=== PATIENT | female | born 1990 | race African-American/Black ===

== ENCOUNTER 2021-10-16 07:44 | Emergency (ER) | payer SELFPAY ==
--- OUTSIDE RECORDS SUMMARY | 2021-10-16 07:47 | XMS REPORT | Continuity of Care Document ---
:1990 Author Organization [facility] t Address [address] [place] [address] Care Team Providers Name Role Phone PCP, PATIENT DOES NOT HAVE A Primary Care Physician Unavaila RADHA Ro Attending Clinician Unavailable DAWSON ASKEW Attending Clinician Unavailable Dawson Askew MD Attending Clinician PAMELA TRIANA Attending Clinician Unavailable Pamela Edgar Attending Clinician AALIYAH HEADLEY Attending Clinician Unavailable LUPE ENAMORADO Attending Clinician Unavailable Doctor Unassigned, Roff Attending Clinician Unavailable LEE WHITMAN Attending Clinician Unavailable FAVIO JEAN BAPTISTE Attending Clinician Unavailable Favio Mensah Attending Clinician PASCUAL RIVERA Attending Clinician Unavailable PRATIK RANDALL Attending Clinician Unavailable DAWSON ASKEW Admitting Clinician Unavailable FAVIO JEAN BAPTISTE Admitting Clinician Unavailable Payers Payer Name Policy Type Policy Number Effective Date Expiration Date Anum nunez [place]ICAID OF [place] [id number] 2015 00:00:00 Problems Condition Condition Condition Status Onset Resolution Last Treating Co mments Source Name Details Category Date Date Treatment Clinician Date Ectopic Ectopic Disease Active Univers 9-20 ity of 00:00: [place] 00 [facility] Ectopic Ectopic Disease Active Univers , , 9-20 it y of tubal tubal 00:00: [place] 00 [facility] Active Active Disease Active 2014-03 Univers labor labor 1-19 ity of 00:00: 00 [facility] 39 weeks 39 weeks Disease Active 2014-03 Unive rs gestation gestation 1- ity of of of 00:00: [place] 00 [facility] Elevated Elevated Disease Active 2014-03 Unive rs blood blood -19 ity of pressure pressure 00:00: [place] affecting affecting 00 [facility] Bran ch in third in third trimester, trimester, antepartum antepartum Allergies, Adverse Reactions, Alerts Allergy Allergy Status Severity Reaction(s) Onset Inactive Treating Comm ents Source Name Type Date Date Clinician NO KNOWN Drug Active Univers ALLERGIE Class ity of [facility] Social History Social Habit Start Date Stop Date Quantity Comments Source History of tobacco 2014-04-27 Cigarette Smoker University of use 00:00:00 [facility] Exposure to 2021-09-28 2021-10-08 Not sure University of SARS-CoV-2 (event) 00:00:00 03:42:00 [facility] Cigarettes smoked 2015-01-25 2015-01-25 Univers ity of current (pack per 00:00:00 00:00:00 ) - Reported Branch Tobacco use and 2015-01-25 2015-01-25 Smokeless Universit y of exposure 00:00:00 00:00:00 tobacco non-user [facility] Sex Ass[birth year] At [birth year] Universit y of 00:00:00 00:00:00 [facility] Smoking Status Start Date Stop Date Source Ex-smoker 2015-01-25 00:00:00 2015-01-25 00:00:00 [facility] [place] [facility] Medications Ordered Filled Start Stop Current Ordering Indication Dosage Frequency Signature Comments Components Source Medication Medication Date Date Medication? Clinician (SIG) Name Name ketorolac No 30mg 30 mg, Unive rs (TORADOL) 10-08 Slow IV ity of injection 12:15: 11:20 Push, [place] 30 mg 00 :00 ONCE, 1 Medical dose, On Branch Thu10/08/21 at 0715, EVARISTO iohexol 2021- No [id number] 100mL 100 mL, Univers (OMNIPAQUE 10-08 Intravenou it y of 350 10:15: 10:03 s, ONCE, 1 [place] BULK-100 00 :00 dose, On Medical mL) Thu10/08/21 Branch injection at 0515, 100 mL Routine morpHINE (4 2021- No 4mg 4 mg, Slow Univers mg/mL) 10-08 IV Push, ity of injection 4 09:30: 09:38 [place]CE[place] 1 [place] mg [place] :[place] dose, On Medical Thu10/08/21 Branch at 0430, EVARISTO metoclopram No 10mg 10 mg, Uni vers [place] HCl 10-08 Slow IV ity of (REGLAN) 08:30: 08:47 Push, [place] injection 00 :00 ONCE, 1 Medical 10 mg dose, On Branch Thu10/08/21 at 0330, EVARISTO butalbital- Yes [id number] 1{tbl} Take 1 Univers acetaminoph 10-08 tablet by ity of en-caff 00:00: mouth [place] 50-325-40 00 every 4 Medical mg tablet (four) Branch hours as needed for Pain (scale 4-6). metoclopram Yes [id number] 10mg Take 1 Univers [place] HCl 10 10-08 tablet by ity of mg tablet 00:00: mouth [place] 00 every 6 Medical (six) Branch hours. LORazepam 2021- No 1mg 1 mg, Univer s (ATIVAN) 10-06- Oral, ity of tablet 1 mg 03:00: 03:09 ONCE[place] 1 [place] :[place] dose, On Medical Sat Branch 10/05/21 at 2200, EVARISTO ketorolac 2021- No 30mg 30 mg, Unive rs (TORADOL) 08-20 06-14 Intramuscu ity of injection 07:15: 06:13 lar, ONCE, [place] 30 mg 00 :00 1 dose, On Medical Tue Branch 08/20/21 at 0215, EVARISTO predniSONE 2021- No [id number] 20mg Take 1 Univers 20 mg 4-24 04-29 tablet by ity of tablet 00:00: 04:59 mouth 2 [place] 00 :00 (two) Medical times Branch daily for 4 days. methylPREDN Yes [id number] Take by [facility] ISolone 4 3-24 mouth ity of mg tablets 00:00: [place]-INSTRU [place] 00 CTIONS. Medical follow Branch package directions methylPREDN Yes [id number] Take by Univers ISolone 4 3-24 mouth ity of mg tablets 00:00: [place]INSTRU [place] 00 CTIONS. Medical follow Branch package directions methylPREDN Yes [id number] Take by Univers ISolone 4 3-24 mouth ity of mg tablets 00:00: [place]-INSTRU [place] 00 CTIONS. Medical follow Branch package directions methylPREDN Yes [id number] Take by Univers ISolone 4 3-24 mouth ity of mg tablets 00:00: [place]-INSTRU [place] 00 CTIONS. Medical follow Branch package directions methylPREDN 2021- No [id number] Take by [facility] ISolone 4 3-24 07-30 mouth ity of mg tablets 00:00: 00:00 SEE-INSTRU [place] 00 :00 CTIONS. Medical follow Branch package directions HYDROcodone Yes 1{tbl} Take 1 Un keysha -acetaminop 9-21 tablet by ity of hen (NORCO) 00:00: mouth [place] 10-325 mg 00 every 6 Medical tablet (six) Branch hours as needed for Pain (scale 1-3), Pain (scale 4-6) or Pain (scale 7-10). ibuprofen Yes 800mg Take 1 Unive rs (MOTRIN) 9-21 tablet by ity of 800 mg 00:00: mouth [place] tablet 00 every 8 Medical (eight) Branch hours as needed for Pain (scale 1-3). HYDROcodone 2016- Yes 1{tbl} Take 1 Un keysha -acetaminop 9-21 tablet by ity of hen (NORCO) 00:00: mouth [place] 10-325 mg 00 every 6 Medical tablet (six) Branch hours as needed for Pain (scale 1-3), Pain (scale 4-6) or Pain (scale 7-10). ibuprofen 2015- Yes 800mg Take 1 Unive rs (MOTRIN) 9-21 tablet by ity of 800 mg 00:00: mouth [place] tablet 00 every 8 Medical (eight) Branch hours as needed for Pain (scale 1-3). HYDROcodone Yes 1{tbl} Take 1 Un keysha -acetaminop 9-21 tablet by ity of hen (NORCO) 00:00: mouth [place] 10-325 mg 00 every 6 Medical tablet (six) Branch hours as needed for Pain (scale 1-3), Pain (scale 4-6) or Pain (scale 7-10). ibuprofen 2015- Yes 800mg Take 1 Unive rs (MOTRIN) 9-21 tablet by ity of 800 mg 00:00: mouth [place] tablet 00 every 8 Medical (eight) Branch hours as needed for Pain (scale 1-3). HYDROcodone Yes 1{tbl} Take 1 Un keysha -acetaminop 9-21 tablet by ity of hen (NORCO) 00:00: mouth [place] 10-325 mg 00 every 6 Medical tablet (six) Branch hours as needed for Pain (scale 1-3), Pain (scale 4-6) or Pain (scale 7-10). ibuprofen 2015- Yes 800mg Take 1 Unive rs (MOTRIN) 9-21 tablet by ity of 800 mg 00:00: mouth [place] tablet 00 every 8 Medical (eight) Branch hours as needed for Pain (scale 1-3). HYDROcodone 2021- No 1{tbl} Take 1 U nivers -acetaminop 9-21 07-30 tablet by it y of hen (NORCO) 00:00: 00:00 [place] 10-325 mg 00 :00 every 6 Medical tablet (six) Branch hours as needed for Pain (scale 1-3), Pain (scale 4-6) or Pain (scale 7-10). ibuprofen 800mg Take 1 Univ ers (MOTRIN) 11-27 tablet by veda flynn 800 mg 00:00: 00:00 mouth [place] tablet 00 :00 every 8 Medical (eight) Branch hours as needed for Pain (scale 1-3). Vital Signs Vital Name Observation Time Observation Value Comments Source Systolic blood 2021-10-08 12:04:00 146 mm[Hg] Univer sity of pressure [facility] Diastolic blood 2021-10-08 12:04:00 99 mm[Hg] Unive rsity of [facility] Heart rate 2021-10-08 12:04:00 50 /min Universi ty [facility] Respiratory rate 2021-10-08 12:04:00 16 /min [facility] [place] [facility] saturation in 2021-10-08 12:04:00 99 /min University of Arterial blood by [facility] Pulse oximetry Branch Body temperature 2021-10-08 08:18:00 36.83 Светлана [facility] ersity [facility] Body height 2021-10-08 08:18:00 160 cm Universi ty [facility] Body weight 2021-10-08 08:18:00 61.689 kg Universi ty [facility] BMI 2021-10-08 08:18:00 24.09 kg/m2 Universi ty [facility] Systolic blood 2021-10-06 04:24:00 143 mm[Hg] Univer sity of [facility] Diastolic blood 2021-10-06 04:24:00 112 mm[Hg] Unive rsity of [facility] Heart rate 2021-10-06 04:24:00 81 /min Universi ty [facility] Branch Respiratory rate 2021-10-06 04:24:00 19 /min Univ ersity of [facility] Oxygen saturation in 2021-10-06 04:24:00 99 /min University of Arterial blood by [facility] Pulse oximetry Branch Body weight 2021-10-06 02:21:00 61.689 kg Universi ty [facility] BMI 2021-10-06 02:21:00 24.09 kg/m2 Universi ty [facility] Body temperature 2021-10-06 02:21:00 36.39 Светлана Univ ersity of [place] [facility] Body height 2021-10-06 02:21:00 160 cm Universi ty of [place] [facility] Systolic blood 2021-09-17 21:19:00 106 mm[Hg] Univer sity of pressure [place] [facility] Diastolic blood 2021-09-17 21:19:00 61 mm[Hg] Unive rsity of pressure [place] [facility] Heart rate 2021-09-17 21:19:00 66 /min Universi ty of [place] [facility] Body temperature 2021-09-17 21:19:00 37.28 Светлана Univ ersity of [place] [facility] Respiratory rate 2021-09-17 21:19:00 16 /min Univ ersity of [place] [facility] Body height 2021-09-17 21:19:00 160 cm Universi ty [facility] [place] [facility] Body weight 2021-09-17 21:19:00 61.689 kg Universi ty [facility] [place] [facility] BMI 2021-09-17 21:19:00 24.09 kg/m2 Universi ty of [place] [facility] Oxygen saturation in 2021-09-17 21:19:00 100 /min University of Arterial blood by [place] [employer] Pulse oximetry Branch Systolic blood 2021-08-20 08:00:00 109 mm[Hg] Univer sity of pressure [place] [facility] Diastolic blood 2021-08-20 08:00:00 72 mm[Hg] Unive rsity of pressure [place] [facility] Heart rate 2021-08-20 08:00:00 52 /min Universi ty of [place] [facility] Respiratory rate 2021-08-20 08:00:00 16 /min Univ ersity of [place] [facility] Oxygen saturation in 2021-08-20 08:00:00 100 /min University of Arterial blood by [place] [employer] Pulse oximetry Branch Body temperature 2021-08-20 05:51:00 36.83 Светлана Univ ersity of [place] [facility] Body height 2021-08-20 05:51:00 160 cm Universi ty of [place] [facility] Body weight 2021-08-20 05:51:00 61.236 kg Universi ty of [place] [facility] BMI 2021-08-20 05:51:00 23.91 kg/m2 Universi ty of [place] [facility] Systolic blood 2021-06-30 17:02:00 123 mm[Hg] Univer sity of pressure [facility] Diastolic blood 2021-06-30 17:02:00 87 mm[Hg] Unive rsity of pressure [facility] Heart rate 2021-06-30 17:02:00 76 /min [facility] Body temperature 2021-06-30 17:02:00 37.33 Светлана [facility] Respiratory rate 2021-06-30 17:02:00 14 /min [facility] Body height 2021-06-30 17:02:00 157.5 cm [facility] Body weight 2021-06-30 17:02:00 61.689 kg [facility] BMI 2021-06-30 17:02:00 24.87 kg/m2 [facility] Oxygen saturation in 2021-06-30 17:02:00 100 /min [facility] Arterial blood by [facility] Pulse oximetry Branch Procedures Procedure Date / Time Performing Clinician Source Performed CT ANGIOGRAM HEAD 2021-10-08 10:07:20 Dawson Askew [facility] CT HEAD WO CONTRAST 2021-10-08 10:06:41 Dawson Askew [facility] URINALYSIS 2021-10-08 09:35:00 Dawson Askew [facility] URINE DRUG (IMMUNOASSAY) 2021-10-08 09:35:00 Dawson Askew [facility] DRUG [facility] nch SCREEN W/O REFLEX TEST, SERUM 2021-10-08 08:46:00 Dawson Askew [facility] COMP. METABOLIC PANEL 2021-10-08 08:46:00 Dawson Askew [facility] ([id number]) [facility] SEDIMENTATION RATE 2021-10-08 08:46:00 Dawson Askew [facility] CBC WITH DIFF 2021-10-08 08:46:00 Dawson Askew [facility] NOTICE OF PRIVACY 2021-10-08 08:10:27 Doctor Unassigned, No Univ [facility] PRACTICES Name [facility] [place] [facility] CONSENT/REFUSAL FOR 2021-10-08 08:09:37 [facility] Medical Branch CONSENT/REFUSAL FOR 2021-10-06 02:11:49 Doctor Unassigned, No Un [facility] [place] DIAGNOSIS AND TREATMENT Name Medical Branch CONSENT/REFUSAL FOR 2021-09-17 21:10:02 Doctor Unassigned, No Un [facility] [place] DIAGNOSIS AND TREATMENT Name Medical Branch CT HEAD WO CONTRAST 2021-08-20 06:42:01 Favio Jean Baptiste [facility] ty [facility] POCT TEST 2021-08-20 06:16:00 Favio Jean Baptiste [facility] CONSENT/REFUSAL FOR 2021-08-20 05:34:35 Doctor Unassigned, No Un [facility] [place] DIAGNOSIS AND TREATMENT Name Medical Branch NOTICE OF PRIVACY 2021-06-30 16:51:39 Doctor Unassigned, No Univ [facility] [place] PRACTICES Name Medical Branch CONSENT/REFUSAL FOR 2021-06-30 16:50:49 Doctor Unassigned, No Un [facility] [place] DIAGNOSIS AND TREATMENT Name Medical Branch Encounters Start End Encounter Admission Attending Care Care Encounter Source Date/Time Date/Time Type Type Clinicians Facility Department ID 2021-11-15 2021-11-15 Outpatient [facility] [id number] 00:00:00 00:00:00 [facility] 2021-10-10 2021-10-10 [facility] [id number] 08:29:49 09:31:19 [facility] 2021-10-08 2021-10-08 Emergency X AZAR [facility] ERT [id number] Univers 03:21:00 07:07:00 DAWSON mccollum [facility] 2021-10-08 2021-10-08 Emergency Azar [facility] [id number] Univers 03:21:00 07:07:00 Dawson MATUTE [id number] i ty [facility] [id number] [facility] [id number] [facility] 08 Branch 2021-10-05 2021-10-05 Emergency X PA TRIANA ERT [id number] Univers 21:22:00 23:28:00 PAMELA mccollum [facility] 2021-10-05 2021-10-05 Emergency Dipika AKABBY [id number] Univers 21:22:00 23:28:00 Pamela MATUTE [id number] i ty of [place] [id number] [facility] [id number] [address] 2021-10-03 2021-10-[address] [facility] 02:24:00 05:10:00 , AALIYAH 2021-09-17 2021-09-17 Emergency X ZACH [facility] ERT [id number] Univers 16:29:00 16:40:00 NAPOLEONPHILIP veda [facility] 2021-09-17 2021-09-17 Emergency Zach [facility] [id number] Univers 16:29:00 16:40:00 Lupe MATUTE [id number] i ty of [place] [id number] [facility] [id number] [address] 2021-09-17 2021-09-17 Orders Doctor ANN [id number] [place] [address] 00:00:00 00:00:00 Only Unassigned, LIZBET [id number] ity of Roff [facility] [id number] [facility] [id number] [address] 2021-09-02 2021-09-02 Outpatient ANTONETTE, [facility] [id number] [place] 14:24:27 15:17:12 [facility] 2021-08-21 2021-08-21 Emergency [facility] [id number] [place] 00:58:00 01:17:00 [facility] 2021-08-20 2021-08-20 Emergency [facility] [id number] [place] 17:39:56 18:04:55 [facility] 2021-08-20 2021-08-20 Emergency 1 [facility] [id number] [place] 13:09:00 13:09:00 [facility] 2021-08-20 2021-08-20 Emergency X [facility] ERT [id number] Univers 00:55:00 03:09:00 FAVIO mccollum [facility] 2021-08-20 2021-08-20 Emergency [facility] [id number] Univers 00:55:00 03:09:00 Favio R [place] [id number] i ty of [place] [id number] [facility] [id number] [address] 2021-08-18 2021-08-18 Emergency E PASCUAL RIVERA MHBL MHBL [id number] MHBL 07:55:00 12:38:00 2021-08-09 2021-08-09 Emergency E PRAKASH, MHBL MHBL [id number] MHBL 05:05:00 10:15:00 PRATIK 2021-06-30 2021-06-30 Emergency X IONE, [facility] ERT [id number] Univers 12:03:00 13:18:[address] [facility] 2021-06-30 2021-06-30 Emergency [facility] [id number] Univers 12:03:00 13:18:00 Favio R [place] 350.1.13.10 i ty of [place] [id number] [facility] [id number] [address] 2020-03-13 2020-03-13 Emergency [facility] [id number] [place] 00:00:00 00:00:[address] Results Test Description Test Time Test Comments Results Result Comments Source SEDIMENTATION RATE 2021-10-08 09:26:53 Test Item Value Reference Range Interpretation Comme nts ESR (test code = 9850874837) See_Comment [Automated message] The system which generated this result transmitted ref erence range: 0 - 20 mm/HR. The r eference range was not used to int erpret this result as normal/abnor mal. Lab Interpretation (test code = Normal 42685-0) [facility] WITH [id number] 09:25:38 Test Item Value Reference Range Interpretation Comments WBC (test code = See_Comment L [Automated 4590-2) message] The sy stem which generated this result transmitted reference range : 4.30 - 11.10 10*3/?L. The reference range was not used to interpret this result as normal/abnormal . RBC (test code = See_Comment [Automated 789-8) message] The sy stem which generated this result transmitted reference range : 3.93 - 5.25 10*6/?L. The reference range was not used to interpret this result as normal/abnormal . HGB (test code = 11.7 g/dL 11.6-15 718-7) HCT (test code = 34.6 % 35.7-45.2 L 4544-3) MCV (test code = 83.0 fL 80.6-95.5 787-2) MCH (test code = 28.1 pg 25.9-32.8 785-6) MCHC (test code = 33.8 g/dL 31.6-35.1 786-4) RDW-SD (test code = 47.5 fL 39-49.9 08795-3) RDW-CV (test code = 15.7 % 12-15.5 H 788-0) PLT (test code = See_Comment H [Automated 777-3) message] The sy stem which generated this result transmitted reference range : 166 - 358 10*3/ ?L. The reference r esau was not used to interpret this result as normal/abnormal . MPV (test code = 9.7 fL 9.5-12.9 19551-0) NRBC/100 WBC (test See_Comment [Automat ed code = 8745452296) message] The system which generated this result transmitted reference range : 0.0 - 10.0 /100 WBCs. The refer ence range was not u sed to interpret th is result as normal/abnormal . NRBC x10^3 (test code See_Comment [Auto mated = 7275856157) message] The s ystem which generated this result transmitted reference range : 10*3/?L. The reference range was not used to interpret this result as normal/abnormal . GRAN MAT (NEUT) % 36.0 % (test code = 770-8) IMM GRAN % (test code 0.00 % = 6560713781) LYMPH % (test code = 50.1 % 736-9) MONO % (test code = 6.3 % 5905-5) EOS % (test code = 6.6 % 713-8) BASO % (test code = 1.0 % 706-2) GRAN MAT x10^3(ANC) 1.48 10*3/uL 1.88-7.09 L (test code = 2509049043) IMM GRAN x10^3 (test 0-0.06 code = 0065548611) LYMPH x10^3 (test code 2.06 10*3/uL 1.32-3.29 = 731-0) MONO x10^3 (test code 0.26 10*3/uL 0.33-0.92 L = 742-7) EOS x10^3 (test code = 0.27 10*3/uL 0.03-0.39 711-2) BASO x10^3 (test code 0.04 10*3/uL 0.01-0.07 = 704-7) Lab Interpretation Abnormal (test code = 13027-0) [facility]. METABOLIC PANEL (19701)2021-10-08 09:06:19 Test Item Value Reference Range Interpretation Comments NA (test code = 137 mmol/L 135-145 1971461404) K (test code = 4.5 mmol/L 3.5-5 6591908226) CL (test code = 108 mmol/L 98-108 1992402569) CO2 TOTAL (test code 23 mmol/L 23-31 = 4092469384) AGAP (test code = 2-16 1704550179) BUN (test code = 7 mg/dL 7-23 3399399427) GLUCOSE (test code = 104 mg/dL 70-110 3574411383) CREATININE (test code 0.77 mg/dL 0.5-1.04 = 4462768233) TOTAL BILI (test code 0.3 mg/dL 0.1-1.1 = 4289380010) CALCIUM (test code = 8.8 mg/dL 8.6-10.6 3670735361) T PROTEIN (test code 6.8 g/dL 6.3-8.2 = 4429146709) ALBUMIN (test code = 4.2 g/dL 3.5-5 1134075794) ALK PHOS (test code = 85 U/L 34-122 1132730197) ALTv (test code = 34 U/L 5-35 1742-6) AST(SGOT) (test code 32 U/L 13-40 = 7209253949) eGFR (test code = mL/min/1.73m2 7383079295) ELIZ (test code = ELIZ) Association of Glomerular Filtration Rate (GFR) and Staging of Kidney Disease* + + +- +| GFR (mL/min/1.73 m2) ?| With Kidney Damage ?| ?Without Kidney Damage+ ------+ ----+ ------+| ?>90 ?| ?Stage one ?| ? Normal ?+ -+ + -+| ?60-89 ?| ?Stage two ?| ? Decreased GFR ? + + +- +| ?30-59 ?| ?Stage three ?| ? Stage three ? + + +- +| ?15-29 ?| ?Stage four ? | ? Stage four ?+ -+ + -+| ?<15 (or dialysis) ? ?| ?Stage five ? | ? Stage five ?+ -+ + -+ *Each stage assumes the associated GFR level has been in effect for at least three months. ?Stages 1 to 5, with or without kidney disease, indicate chronic kidney disease. Notes: Determination of stages one and two (with eGFR >59mL/min/1.73 m2) requires estimation of kidney damage for at least three months as defined by structural or functional abnormalities of the kidney, manifested by either:Pathological abnormalities or Markers of kidney damage (including abnormalities in the composition of the blood or urine or abnormalities in imaging tests). [facility] [id number] 09:05:38 Test Item Value Reference Range Interpretation Comments PREG SERUM (test code Negative = 1430017676) ELIZ (test code = ELIZ) Less than 10 IU/L. ?If low titer or ectopic is suspected, resubmit specimen in 48-72 hours. [facility] Ab+HIV1 p24 Ag SerPl Ql [id number] 18:38:11 Test Item Value Reference Range Interpretation Comments HIV 1+2 Ab+HIV1 p24 Ag SerPl Ql [place] NEGATIVE Negative (test code = 73867-6) POCT [id number] 06:16:00 Test Item Value Reference Range Interpretation Comments POCT PREG (test code = 1605) negative On board controls acceptable with positive C Line (test code = 3574) POCT PREG LOT # (test code = 3575) [id number] POCT PREG TEST DATE (test 01/06/2023 code = 3576) Lab Interpretation (test code = Normal 19857-3) [facility]"
--- NOTE | 2021-10-16 08:17 | EDPHYS ---
Physician Documentation [facility] Name: Kvng Hayden Age: 31 yrs Sex: Female : 1990 Arrival Date: 10/16/2021 Time: 07:46 Bed 12 Private MD: ED Physician Anna Marie Austin HPI: 10/16 08:12 This 31 yrs old Black Female presents to ER via Ambulatory with complaints of Headache. sp3 08:12 11-year-old female presents to the ED for headache and facial pain in her sinuses. sp3 Patient has had the symptoms for the last several months and has seen neurology and ENT in the past and has had negative CT scan of the head, MRI of the brain, and scoping of her nasal passages by ENT. On her last visit, ENT referred her back to neurology for further work-up. Patient is in the [facility] system and has her gold card. Today she comes here seeking pain control and she is frustrated that nobody is "dealing with her sinuses which is what she thinks the problem is". She denies fever, neck pain, throat pain, chest pain, shortness of breath, back pain, fever, any other ROS symptoms at this time.. Historical: - Allergies: 07:53 No Known Allergies; ss - Home Meds: 07:53 None [Active]; ss - PMHx: 07:53 None; ss - PSHx: 07:53 "brain surgery for sinusitis"; ss - Immunization history:: Client reports receiving the 2nd dose of the Covid vaccine. - Social history:: Smoking status: Patient reports the use of cigarette tobacco products, smokes one-half pack cigarettes per day. ROS: 08:13 Constitutional: Negative for fever, chills, and weight loss, Eyes: Negative for injury, sp3 pain, redness, and discharge, Neck: Negative for injury, pain, and swelling, Cardiovascular: Negative for chest pain, palpitations, and edema, Respiratory: Negative for shortness of breath, cough, wheezing, and pleuritic chest pain, Abdomen/GI: Negative for abdominal pain, nausea, vomiting, diarrhea, and constipation, Back: Negative for injury and pain, MS/Extremity: Negative for injury and deformity, Skin: Negative for injury, rash, and discoloration, Psych: Negative for depression, anxiety, suicide ideation, homicidal ideation, and hallucinations, Allergy/Immunology: Negative for hives, rash, and allergies, Endocrine: Negative for neck swelling, polydipsia, polyuria, polyphagia, and marked weight changes. 08:13 All other systems are negative. Exam: 08:13 Constitutional: This is a well developed, well nourished patient who is awake, alert, sp3 and in no acute distress. Head/Face: Normocephalic, atraumatic. Eyes: Pupils equal round and reactive to light, extra-ocular motions intact. Lids and lashes normal. Conjunctiva and sclera are non-icteric and not injected. Cornea within normal limits. Periorbital areas with no swelling, redness, or edema. ENT: Nares patent. No nasal discharge, no septal abnormalities noted. External auditory canals are clear. Oropharynx with no redness, swelling, or masses, exudates, or evidence of obstruction, uvula midline. Mucous membranes moist. Neck: Trachea midline, no thyromegaly or masses palpated, and no cervical lymphadenopathy. Supple, full range of motion without nuchal rigidity, or vertebral point tenderness. No Meningismus. Chest/axilla: Normal chest wall appearance and motion. Nontender with no deformity. No lesions are appreciated. Cardiovascular: Regular rate and rhythm with a normal S1 and S2. No gallops, murmurs, or rubs. Normal PMI, no JVD. No pulse deficits. Respiratory: Lungs have equal breath sounds bilaterally, clear to auscultation and percussion. No rales, rhonchi or wheezes noted. No increased work of breathing, no retractions or nasal flaring. Abdomen/GI: Soft, non-tender, with normal bowel sounds. No distension or tympany. No guarding or rebound. No evidence of tenderness throughout. Back: No spinal tenderness. No costovertebral tenderness. Full range of motion. Skin: Warm, dry with normal turgor. Normal color with no rashes, no lesions, and no evidence of cellulitis. MS/ Extremity: Pulses equal, no cyanosis. Neurovascular intact. Full, normal range of motion. Neuro: Awake and alert, GCS 15, oriented to person, place, time, and situation. Cranial nerves II-XII grossly intact. Motor strength 5/5 in all extremities. Sensory grossly intact. Cerebellar exam normal. Normal gait. Psych: Awake, alert, with orientation to person, place and time. Behavior, mood, and affect are within normal limits. Vital Signs: 07:49 BP 163 / 117; Pulse 86; Resp 16; Temp 98.7(TE); Pulse Ox 100% ; Weight 58.97 kg; Height ss 5 ft. 3 in. (160.02 cm); Pain 7/10; 08:54 BP 160 / 112; Pulse 86; ss 07:49 Body Mass Index 23.03 (58.97 kg, 160.02 cm) ss MDM: 08:14 Data reviewed: vital signs, nurses notes. ED course: 11-year-old female with recurrent sp3 headache. Blood pressure is improved from triage. At this time I will discharge her on Levaquin after an IM dose of Dilaudid where her grandmother will be picking her up. Patient has no behavior suggesting drug-seeking. She is reasonable and her concern and desire to figure out her diagnosis. Also suggest seeing an eye hospice care consultant to check her intraocular pressures and to assess a visual etiology for her symptoms. Follow-up with neurology in the [facility] where she already has an appointment.. 08:17 Patient medically screened. sp3 Administered Medications: 08:26 Drug: Dilaudid (HYDROmorphone) 1 mg Route: IM; Site: right gluteus; iw 08:30 Follow up: Response: No adverse reaction iw 08:26 Drug: Ondansetron 4 mg Route: PO; iw 08:30 Follow up: Response: No adverse reaction iw Disposition Summary: 10/16/21 08:17 Discharge Ordered Location: Home sp3 Condition: Stable sp3 Diagnosis - Other headache syndrome sp3 - Other acute sinusitis sp3 Discharge Instructions: - Discharge Summary Sheet sp3 - Sinus Headache sp3 Forms: - Medication Reconciliation Form sp3 - Thank You Letter sp3 - Antibiotic Education sp3 - Prescription Opioid Use sp3 Prescriptions: - levofloxacin 500 mg Oral Tablet - take 1 tablet by ORAL route once daily for 7 days; 7 tablet; Refills: 0, sp3 Product Selection Permitted Signatures: Mel Campos RN RN Susi Valdes RN RN ss Anna Marie Austin MD MD sp3
--- NOTE | 2021-10-16 08:17 | ER ---
Nurse's Notes [facility] Name: Kvng Hayden Age: 31 yrs Sex: Female : 1990 Arrival Date: 10/16/2021 Time: 07:46 Bed 12 Private MD: Diagnosis: Other headache syndrome;Other acute sinusitis Presentation: 10/16 07:49 Chief complaint: Patient states: "My head, neck, throat and shoulder hurt. I've had ss sinusitis before and I feel like that is what it is. It's been going on since May. I've seen an neurologist and an ENT and nobody can see anything.". Coronavirus screen: Client denies travel out of the [place] in the last 14 days. Ebola Screen: Patient denies exposure to infectious person. Patient denies travel to an Ebola-affected area in the 21 days before illness onset. Initial Sepsis Screen: Does the patient meet any 2 criteria? No. Patient's initial sepsis screen is negative. Does the patient have a suspected source of infection? No. Patient's initial sepsis screen is negative. Risk Assessment: Do you want to hurt yourself or someone else? Patient reports no desire to harm self or others. Onset of symptoms was May 2021. 07:49 Method Of Arrival: Ambulatory ss 07:49 Acuity: JACKELIN 3 ss Triage Assessment: 08:55 Headache History: The patient has had previous headaches. General: Appears in no iw apparent distress. Behavior is calm, cooperative. Pain: Complains of pain in head Pain Pain began Also complains of no other associated symptoms. Neuro: Mallory Agitation-Sedation Scale (RASS): 0 - Alert and Calm Level of Consciousness is awake, alert, obeys commands. Historical: - Allergies: 07:53 No Known Allergies; ss - Home Meds: 07:53 None [Active]; ss - PMHx: 07:53 None; ss - PSHx: 07:53 "brain surgery for sinusitis"; ss - Immunization history:: Client reports receiving the 2nd dose of the Covid vaccine. - Social history:: Smoking status: Patient reports the use of cigarette tobacco products, smokes one-half pack cigarettes per day. Screenin:53 Abuse screen: Denies threats or abuse. Denies injuries from another. Nutritional ss screening: No deficits noted. Tuberculosis screening: Never had TB. Fall Risk None identified. Assessment: 08:53 Reassessment: Patient appears in no apparent distress at this time. Patient and/or ss family updated on plan of care and expected duration. Pain level reassessed. Patient is alert, oriented x 3, equal unlabored respirations, skin warm/dry/pink. Patient states feeling better. Patient states symptoms have improved. Respiratory: Airway is patent Respiratory effort is even, unlabored. Vital Signs: 07:49 BP 163 / 117; Pulse 86; Resp 16; Temp 98.7(TE); Pulse Ox 100% ; Weight 58.97 kg; Height ss 5 ft. 3 in. (160.02 cm); Pain 7/10; 08:54 BP 160 / 112; Pulse 86; ss 07:49 Body Mass Index 23.03 (58.97 kg, 160.02 cm) ED Course: 07:46 Patient arrived in ED. rg4 07:53 Triage completed. ss 07:53 Arm band placed on right wrist. 07:57 Anna Marie Austin MD is Attending Physician. sp3 08:26 Mel Campos RN is Primary Nurse. iw 08:53 Patient has correct armband on for positive identification. Bed in low position. Call ss light in reach. 08:54 No provider procedures requiring assistance completed. Patient did not have IV access iw during this emergency room visit. Administered Medications: 08:26 Drug: Dilaudid (HYDROmorphone) 1 mg Route: IM; Site: right gluteus; iw 08:30 Follow up: Response: No adverse reaction iw 08:26 Drug: Ondansetron 4 mg Route: PO; iw 08:30 Follow up: Response: No adverse reaction iw Medication: 08:53 VIS not applicable for this client. Outcome: 08:17 Discharge ordered by . sp3 08:54 Patient left the ED. kc6 08:54 Discharged to home ambulatory, with friend. ss 08:54 Condition: good 08:54 Discharge instructions given to patient, Instructed on discharge instructions, follow up and referral plans. Demonstrated understanding of instructions, follow-up care. Signatures: Mel Campos RN RN Susi Valdes RN RN Candace Ricketts rg4 Anna Marie Austin MD MD sp3 Chio Jacobs kc6 Corrections: (The following items were deleted from the chart) 08:04 07:49 Acuity: JACKELIN 4 ss ss
[2021-10-16] MEDS ORDERED: HYDROMORPHONE HCL 1 MG/ML INJ ONE (08:28)
[2021-10-16] MEDS ORDERED: ONDANSETRON 4 MG (ODT) TAB ONE (08:29)
[2021-10-16 09:02] VITALS: TEMP 98.7; O2SAT 100
[2021-10-16 09:04] VITALS: BP 160/112
== END 2021-10-16 08:54 | disposition home or self-care (01) ==
LOC: ER 07:44
DX: J01.80 Other acute sinusitis (principal); F17.210 Nicotine dependence, cigarettes, uncomplicated
CPT/HCPCS: 96372; 99283; J1170; Q0162